=== PATIENT | male | born 1960 | race Hispanic/Latino ===

== ENCOUNTER 2020-06-02 09:24 | Outpatient (CLI) | payer OTHER, SELFPAY ==
[2020-06-02 09:36] LABS: Hemoglobin 15.1 g/dL (14.0-18.0); Mean Corpuscular HGB Conc 32.1 g/dL (32.0-36.0); Mean Corpuscular Hemoglobin 26.2 pg (27.0-31.0); Mean Corpuscular Volume 81.6 fL (78.0-102.0); Mean Platelet Volume 8.7 fl (8.7-11.0); Platelet Count Result 276 K/mm3 (150-420); Red Blood Count 5.76 M/mm3 (4.70-6.10); Red Cell Distribution Width 13.2 % (11.6-14.4); White Blood Count 5.9 K/mm3 (4.8-10.8)
[2020-06-02 10:17] LABS: Alanine Aminotransferase 43 U/L (16-63); Albumin Level 3.5 g/dL (3.4-5.0); Alkaline Phosphatase 48 U/L (46-116); Anion Gap 6 mmol/L (8-16); Aspartate Amino Transferase 28 U/L (15-37); Bilirubin,Total 0.7 mg/dL (0.00-1.00); Blood Urea Nitrogen 12 mg/dL (7-18); Calcium 8.9 mg/dL (8.5-10.1); Carbon Dioxide 31 mmol/L (21-32); Chloride 103 mmol/L (98-108); Cholesterol 232 mg/dL (0-200); Estimated Glomerular Filt Rate > 60; Glucose 197 mg/dL (70-99); HDL Direct 81 mg/dL (40-60); LDL Cholesterol Calculated 138 mg/dL (<130); Osmolality Calculated 294 mOsm/kg (285-295); Potassium 4.5 mmol/L (3.5-5.1); Sodium 140 mmol/L (136-145); Total Protein 6.7 g/dL (6.4-8.2); Triglycerides 67 mg/dL (0-150)
== END 2020-06-02 09:25 | disposition home or self-care (01) ==
LOC: CHSLAB 09:28
PROVIDERS: PCP Family Medicine; Visit Provider Family Medicine
DX: K21.9 Gastro-esophageal reflux disease without esophagitis (principal); R03.0 Elevated blood-pressure reading, without diagnosis of hypertension
CPT/HCPCS: 36415; 80053; 80061; 85027

== ENCOUNTER 2020-07-20 09:42 | Outpatient (CLI) | payer OTHER, SELFPAY | END 2020-07-20 09:43 | disposition home or self-care (01) | LOC: CHSLAB 09:43 | PROVIDERS: PCP Family Medicine; Visit Provider Family Medicine | DX: Z20.828 Contact with and (suspected) exposure to other viral communicable diseases (principal) | CPT/HCPCS: 36415; 86769 ==

== ENCOUNTER 2020-07-28 12:31 | Outpatient (CLI) | payer OTHER, SELFPAY ==
--- NOTE | ~2020-07-28 | CT_ITS ---
EXAMINATION: CT lung screening DATE: 07/28/2020 12:52 INDICATION: Personal history of nicotine dependence. TECHNIQUE: Computed tomography (CT) of the chest was performed without intravenous contrast. The dose -length product was 149.14 mGy-cm. Automated exposure control and iterative reconstruction technique were employed. COMPARISON: None FINDINGS: Heart size normal. No significant pleural or pericardial effusion. No thoracic lymphadenopa thy. There is mild atherosclerosis. There are pleural-based nodules in the right upper lobe anteriorl y, largest measuring 5 mm. There are small subpleural nodules measuring 2 mm or less predominantly af fecting the upper lobes, right greater than left. No endobronchial lesions. No focal airspace consoli dation. No pneumothorax. Mild thoracic spondylosis. IMPRESSION: 1. Lung-RADS category 2: Benign appearance or behavior. Continue annual screening with noncontrast lo w-dose chest CT in 12 months. Reviewed, dictated and finalized at location A. NESS RISK CONSULTANT IMPRESSION: 1. Lung-RADS category 2: Benign appearance or behavior. Continue annual screeni ng with noncontrast low-dose chest CT in 12 months.
== END 2020-07-28 12:32 | disposition home or self-care (01) ==
LOC: CHSIMG 12:32
PROVIDERS: PCP Family Medicine; Visit Provider Family Medicine
DX: Z12.2 Encounter for screening for malignant neoplasm of respiratory organs (principal); Z87.891 Personal history of nicotine dependence
CPT/HCPCS: G0297

== ENCOUNTER 2021-06-29 11:06 | Outpatient (CLI) | payer OTHER, SELFPAY ==
[2021-06-29 11:23] LABS: Hematocrit 49.4 % (40.0-54.0); Hemoglobin 16.2 g/dL (14.0-18.0); Mean Corpuscular HGB Conc 32.8 g/dL (32.0-36.0); Mean Corpuscular Hemoglobin 26.4 pg (27.0-31.0); Mean Corpuscular Volume 80.6 fL (78.0-102.0); Mean Platelet Volume 8.6 fl (8.7-11.0); Platelet Count Result 300 K/mm3 (150-420); Red Blood Count 6.13 M/mm3 (4.70-6.10); Red Cell Distribution Width 13.2 % (11.6-14.4); White Blood Count 7.1 K/mm3 (4.8-10.8)
[2021-06-29 12:32] LABS: Alanine Aminotransferase 73 U/L (16-63); Albumin Level 3.8 g/dL (3.4-5.0); Alkaline Phosphatase 49 U/L (46-116); Anion Gap 10 mmol/L (8-16); Aspartate Amino Transferase 39 U/L (15-37); Bilirubin,Total 0.9 mg/dL (0.00-1.00); Blood Urea Nitrogen 20 mg/dL (7-18); Carbon Dioxide 28 mmol/L (21-32); Chloride 100 mmol/L (98-108); Cholesterol 217 mg/dL (0-200); Estimated Glomerular Filt Rate > 60; Glucose 229 mg/dL (70-99); HDL Direct 68 mg/dL (40-60); LDL Cholesterol Calculated 132 mg/dL (<130); Osmolality Calculated 295 mOsm/kg (285-295); Potassium 4.8 mmol/L (3.5-5.1); Sodium 138 mmol/L (136-145); Total Protein 7.2 g/dL (6.4-8.2); Triglycerides 85 mg/dL (0-150)
== END 2021-06-29 11:07 | disposition home or self-care (01) ==
PROVIDERS: PCP Family Medicine; Visit Provider Family Medicine
DX: I10 Essential (primary) hypertension (principal); E78.5 Hyperlipidemia, unspecified
CPT/HCPCS: 36415; 80053; 80061; 85027

== ENCOUNTER 2021-08-01 10:14 | Outpatient (CLI) | payer OTHER, SELFPAY ==
--- NOTE | ~2021-08-01 | CT_ITS ---
EXAMINATION: CT lung screening DATE: 08/01/2021 10:29 INDICATION: Personal history of tobacco dependence. Smoker screening. TECHNIQUE: Computed tomography (CT) of the chest was performed without intravenous contrast. The dose -length product was 94.36 mGy-cm. Automated exposure control and iterative reconstruction technique w ere employed. COMPARISON: CT dated 07/28/2020 FINDINGS: No thoracic lymphadenopathy. Heart size normal. No significant pleural or pericardial effus ion. Stable pleural-based nodules measuring 5 mm or less. No significant change to small upper lobe n odules measuring 2 mm or less. No endobronchial lesions. No pneumothorax. The upper abdomen is unrema rkable. Mild thoracic spondylosis. No acute osseous abnormality. IMPRESSION: 1. Lung-RADS category 2: Benign appearance or behavior. Continue annual screening with noncontrast lo w-dose chest CT in 12 months. Reviewed, dictated and finalized at location A. ENT BLOCK LAYER IMPRESSION: 1. Lung-RADS category 2: Benign appearance or behavior. Continue annual screeni ng with noncontrast low-dose chest CT in 12 months.
== END 2021-08-01 10:15 | disposition home or self-care (01) ==
LOC: CHSIMG 10:16
PROVIDERS: PCP Family Medicine; Visit Provider Family Medicine
DX: Z12.2 Encounter for screening for malignant neoplasm of respiratory organs (principal); F17.210 Nicotine dependence, cigarettes, uncomplicated
CPT/HCPCS: 71271

== ENCOUNTER 2022-03-21 09:41 | Outpatient (CLI) | payer OTHER, SELFPAY ==
--- NOTE | ~2022-03-21 | XR_ITS ---
EXAM: XR hand BI arthritis min 3V DATE: 03/21/2022 10:04 HISTORY: hand pain times 2 months . COMPARISON: X-ray left wrist 03/15/2017. FINDINGS: Interval resolution of the soft tissue swelling over the distal and lateral aspect of the r adius. Mild soft tissue swelling over the metacarpal heads of the left hand. Normal mineralization. N o fracture or dislocation. No lytic or blastic lesion. Mild scattered joint space narrowing and osteo phytosis in the wrist and hands. No erosion or periosteal change. Soft tissues within normal limits. IMPRESSION: Interval resolution of the distal left radial soft tissue swelling previously reported to be related to de Quervain's tenosynovitis. Soft tissue swelling over the distal left metacarpal head s. Mild osteoarthritic change in the hands and wrists. Reviewed, dictated and finalized at location K. IMPRESSION: Interval resolution of the distal left radial soft tissue swelling previously reported to be related to de Quervain's tenosynovitis. Soft tissue s welling over the distal left metacarpal heads. Mild osteoarthritic change in th e hands and wrists.
[2022-03-21 10:00] LABS: Hematocrit 42.8 % (40.0-54.0); Hemoglobin 13.7 g/dL (14.0-18.0); Mean Corpuscular Hemoglobin 25.6 pg (27.0-31.0); Mean Corpuscular Volume 79.9 fL (78.0-102.0); Mean Platelet Volume 9.1 fl (8.7-11.0); Platelet Count Result 305 K/mm3 (150-420); Red Blood Count 5.36 M/mm3 (4.70-6.10); Red Cell Distribution Width 14.6 % (11.6-14.4)
[2022-03-21 10:28] LABS: Rheumatoid Factor Screen Negative (Negative)
[2022-03-21 11:13] LABS: Alanine Aminotransferase 44 U/L (16-63); Albumin Level 3.5 g/dL (3.4-5.0); Alkaline Phosphatase 47 U/L (46-116); Anion Gap 11 mmol/L (8-16); Aspartate Amino Transferase 39 U/L (15-37); Bilirubin,Total 0.4 mg/dL (0.00-1.00); Blood Urea Nitrogen 11 mg/dL (7-18); Calcium 9.1 mg/dL (8.5-10.1); Carbon Dioxide 28 mmol/L (21-32); Chloride 104 mmol/L (98-108); Estimated Glomerular Filt Rate > 60; Glucose 156 mg/dL (70-99); Osmolality Calculated 298 mOsm/kg (285-295); Potassium 4.6 mmol/L (3.5-5.1); Sodium 143 mmol/L (136-145); Total Protein 6.9 g/dL (6.4-8.2)
[2022-03-21 11:14] LABS: CRP < 0.2 mg/dL (0.0-0.9)
[2022-03-25 12:06] LABS: ANA Cascade Screen Positive (Negative)
[2022-03-25 13:26] LABS: Chromatin (Nucleosomal) Ab <1.0; RNP Antibody 2.4; Sm Antibody <1.0; Sm/RNP Antibody <1.0
== END 2022-03-21 09:42 | disposition home or self-care (01) ==
LOC: CHSLAB 09:44
PROVIDERS: PCP Family Medicine; Visit Provider Family Medicine
DX: M19.90 Unspecified osteoarthritis, unspecified site (principal)
CPT/HCPCS: 36415; 73130; 80053; 85027; 86038; 86140; 86430

== ENCOUNTER 2023-01-17 10:57 | Outpatient (CLI) | payer OTHER, SELFPAY ==
--- NOTE | ~2023-01-17 | CT_ITS ---
CT Scan of the Chest without Contrast: Clinical Indication: Lung cancer screening, smoking history Technique: Contiguous sections were acquired throughout the chest without intravenous contrast. Dose reduction technique was used on this scan by utilizing automated exposure control and iterative recon struction technique. The dose-length product (DLP) was 81.57 mGy-cm. COMPARISON: 08/01/2021 and 07/28/2020 Findings: There is no evidence of any significant mediastinal, hilar or axillary lymphadenopathy. Coronary louis ry calcifications are present. There is no evidence of pleural or pericardial effusion. Small calcified pleural plaque present at th e anterior right upper lobe. The lungs are clear. No pulmonary nodules or infiltrates are noted. Images through the upper abdomen reveal no abnormalities. Impression: Lung RADS 1: Negative. 12 month follow-up screening CT advised. Reviewed, dictated and finalized at location . Impression: Lung RADS 1: Negative. 12 month follow-up screening CT advised.
== END 2023-01-17 10:58 | disposition home or self-care (01) ==
LOC: CHSIMG 10:58
PROVIDERS: PCP Family Medicine; Visit Provider Family Medicine
DX: Z12.2 Encounter for screening for malignant neoplasm of respiratory organs (principal); Z87.891 Personal history of nicotine dependence
CPT/HCPCS: 71271

== ENCOUNTER 2024-04-21 11:08 | Outpatient (CLI) | payer MEDICARE, SELFPAY ==
--- NOTE | 2024-04-21 11:21 | ECG_ITS ---
Test Date: 2024-04-21 11:30:23 Measurements Intervals [place] Rate: 64 P: 74 IA: 173 QRS: 78 QRSD: 91 T: 80 QT: 378 QTc: 392 Interpretive Statements SINUS RHYTHM WITH VENTRICULAR TRIGEMINY INCOMPLETE RIGHT BUNDLE BRANCH BLOCK ABNORMAL ECG No previous ECG available for comparison Electronically Signed On 04-21-2024 12:07:40 CDT by Jef Crain D.O.
[2024-04-21 11:25] LABS: Basophils Absolute Auto 0.04 K/mm3 (0.00-0.10); Basophils Percent Auto 0.9 % (0.0-1.0); Eosinophils Absolute Auto 0.07 K/mm3 (0.02-0.50); Eosinophils Percent Auto 1.5 % (1.0-6.0); Hematocrit 42.8 % (37.0-46.0); Hemoglobin 14.1 g/dL (12.4-15.3); Immature Granulocyte Absolute 0.03 K/mm3 (0.00-0.00); Immature Granulocyte Percent A 0.6 % (0.0-0.0); Lymphocytes Absolute Auto 1.29 K/mm3 (1.10-4.50); Lymphocytes Percent Auto 27.5 % (18.0-42.0); Mean Corpuscular HGB Conc 32.9 g/dL (32-36); Mean Corpuscular Hemoglobin 25.9 pg (27.0-31.0); Mean Corpuscular Volume 78.7 fL (78.0-102.0); Monocytes Absolute Auto 0.31 K/mm3 (0.10-0.90); Monocytes Percent Auto 6.6 % (2.0-11.0); Neutrophils Absolute Auto 2.95 K/mm3 (1.70-7.20); Neutrophils Percent Auto 62.9 % (50.0-70.0); Platelet Count Result 253 K/mm3 (150-420); Red Blood Count 5.44 M/mm3 (4.70-6.10); Red Cell Distribution Width 14.1 % (11.6-14.4); White Blood Count 4.7 K/mm3 (4.8-10.8)
[2024-04-21 16:26] LABS: Alanine Aminotransferase 45 U/L (16-63); Albumin Level 3.7 g/dL (3.4-5.0); Alkaline Phosphatase 57 U/L (46-116); Anion Gap 4 mmol/L (4-12); Aspartate Amino Transferase 43 U/L (15-37); Bilirubin,Total 0.7 mg/dL (0.00-1.00); Blood Urea Nitrogen 14 mg/dL (7-18); Calcium 9.1 mg/dL (8.5-10.1); Carbon Dioxide 34 mmol/L (21-32); Chloride 100 mmol/L (98-108); Cholesterol 162 mg/dL (0-200); Estimated Glomerular Filt Rate > 60; Glucose 174 mg/dL (70-99); HDL Direct 100 mg/dL (40-60); LDL Cholesterol Calculated 56 mg/dL (<130); Osmolality Calculated 290 mOsm/kg (285-295); Potassium 5.3 mmol/L (3.5-5.1); Sodium 138 mmol/L (136-145); Total Protein 7.1 g/dL (6.4-8.2); Triglycerides 29 mg/dL (0-150)
[2024-04-21 16:56] LABS: Creatinine Urine 52.66 mg/dL (40-278); MALB Creatinine Ratio 24.6 mg/g (0-30); Microalbumin Urine Random < 13.0 mg/L
[2024-04-21 17:18] LABS: Hemoglobin A1C 6.2 % (<5.7)
== END 2024-04-21 11:09 | disposition home or self-care (01) ==
LOC: CHSLAB 11:10
PROVIDERS: PCP Nurse Practitioner Family; Visit Provider Nurse Practitioner Family
DX: E11.9 Type 2 diabetes mellitus without complications (principal); I10 Essential (primary) hypertension; Z13.6 Encounter for screening for cardiovascular disorders; E78.5 Hyperlipidemia, unspecified; I49.9 Cardiac arrhythmia, unspecified
CPT/HCPCS: 36415; 80053; 80061; 82043; 83036; 85025; 93005

== ENCOUNTER 2025-05-16 09:59 | Outpatient (CLI) | payer MEDICARE, SELFPAY ==
[2025-05-16 10:15] LABS: Hematocrit 43.2 % (37.0-46.0); Hemoglobin 14.0 g/dL (12.4-15.3); Immature Granulocyte Percent A 0.4 % (0.0-0.0); Lymphocytes Absolute Auto 1.51 K/mm3 (1.10-4.50); Mean Corpuscular HGB Conc 32.4 g/dL (32-36); Mean Corpuscular Hemoglobin 25.9 pg (27.0-31.0); Mean Corpuscular Volume 79.9 fL (78.0-102.0); Nucleated Red Blood Cells Absolute Auto 0.00 K/mm3 (0.00-0.00); Nucleated Red Blood Cells Perc 0.0 % (0-0.0); Platelet Count Result 257 K/mm3 (150-420); Red Blood Count 5.41 M/mm3 (4.70-6.10); White Blood Count 5.3 K/mm3 (4.8-10.8)
[2025-05-16 10:28] LABS: MALB Creatinine Ratio 12.3 mg/g (0-30)
[2025-05-16 10:53] LABS: Alanine Aminotransferase 39 U/L (6-50); Albumin Level 4.2 g/dL (3.5-5.1); Alkaline Phosphatase 57 U/L (38-126); Anion Gap 8 mmol/L (4-12); Aspartate Amino Transferase 48 U/L (17-59); Bilirubin,Total 1.1 mg/dL (0.2-1.3); Blood Urea Nitrogen 11 mg/dL (9-20); Calcium 9.6 mg/dL (8.4-10.2); Carbon Dioxide 28 mmol/L (22-30); Chloride 102 mmol/L (98-107); Cholesterol 143 mg/dL (0-200); Estimated Glomerular Filt Rate > 60; Glucose 222 mg/dL (65-110); HDL Direct 93 mg/dL; Osmolality Calculated 292 mOsm/kg (285-295); Potassium 5.0 mmol/L (3.4-5.0); Sodium 138 mmol/L (137-145); Total Protein 7.5 g/dL (6.3-8.2); Triglycerides 60 mg/dL (<150)
[2025-05-16 10:54] LABS: Hemoglobin A1C 6.8 % (<5.7)
== END 2025-05-16 10:00 | disposition home or self-care (01) ==
LOC: CHSLAB 10:01
PROVIDERS: PCP Family Medicine; Visit Provider Family Medicine
DX: E11.9 Type 2 diabetes mellitus without complications (principal); I10 Essential (primary) hypertension
CPT/HCPCS: 36415; 80053; 80061; 82043; 83036; 85025

== ENCOUNTER 2025-05-18 12:51 | Outpatient (CLI) | payer MEDICARE, SELFPAY ==
--- NOTE | ~2025-05-18 | CT_ITS ---
EXAMINATION:CT lung screening DATE: 05/18/2025 13:01 INDICATION: Personal history of nicotine dependence. TECHNIQUE: Computed tomography (CT) of the chest was performed without intravenous contrast. Automated exposure control and iterative reconstruction technique were employed. The dose-length product (DLP) was 78.64 mGy-cm. COMPARISON: Chest CT 01/17/23 FINDINGS: There is mild emphysema. There are a few 1-2 mm nodules in the upper lobes. No pleural effusion. The heart size is normal. There are coronary artery calcifications. No pericardial effusion. There is mild thoracic spondylosis. IMPRESSION: 1. Lung-RADS category 2: Benign appearance or behavior. Continue annual screening with noncontrast low-dose chest CT in 12 months. Reviewed, dictated and finalized at location E. IMPRESSION: 1. Lung-RADS category 2: Benign appearance or behavior. Continue annual screeni ng with noncontrast low-dose chest CT in 12 months.
--- OUTSIDE RECORDS SUMMARY | 2025-05-18 13:43 | XMS_ITS | Clinical Summary ---
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 Name Role Phone Feliberto Castellanos Primary Care Provider Allergies No known active allergies Medications omeprazole (PriLOSEC) 20 mg capsule 02/23/2022 Active atorvastatin (LIPITOR) 40 mg tablet 04/06/2022 Active lisinopriL (PRINIVIL,ZESTRI L) 20 mg tablet 04/06/2022 Act omayra metFORMIN (GLUCOPHAGE) 500 mg tablet 03/01/2022 Active meloxicam (MOBIC) 15 mg tabletIndication s:Osteoarthritis Take 1 tablet (15 mg total) by mouth daily 30 tablet 1 04/24/2022 Active Active Problems No known active problems Medical History Medical History Date Comments Hypertension Diabetes mellitus Hypercholesteremia Asthma Social History Tobacco Use Types Packs/Day Years Used Date Smoking Tobacco: Unknown Tobacco Cessation:Counseling Given: Not Answered Personal Safety Answer Date Recorded Getting School Help Needed Not on file 10/13 Sex and Gender Information Value Date Recorded Sex Assigned at Not on file Legal Sex Male 3:48 PM CDT Gender Identity Not on file Sexual Orientation Not on file Obstetrics History Last Filed Vital Signs Vital Sign Reading Time Taken Comments Blood Pressure 153/82 06/07/2022 12:49 PM CDT Pulse 71 06/07/2022 12:49 PM CDT Temperature - - Respiratory Rate - - Oxygen Saturation - - Inhaled Oxygen Concentration - - Weight 68 kg (150 lb) 06/07/2022 12:49 PM CDT Height 167.6 cm (5' 6) 06/07/2022 12:49 PM CDT Body Mass Index 24.21 06/07/2022 12:49 PM CDT Plan of Treatment Health Maintenance Due Date Last Done Comments Colon Cancer Screening-Colonoscopy 1958 Depression Screening 1958 Fall Risk Assessment 1958 Hepatitis C Screening 1960 Prostate Cancer Screening-PSA 1958 DTaP/Tdap/Td Vaccine (1 - Tdap) 1969 Hepatitis B Screening 1976 Pneumococcal vaccine 65+ (1 of 1 - PCV) 2008 Zoster Vaccine (1 of 2) 2008 Abdominal Aortic Aneurysm (AAA) Screen 2023 Well Visit 65+ 2023 Influenza Vaccine (#1) 2025 Insurance [facility] Care Teams Carburizing 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
== END 2025-05-18 12:52 | disposition home or self-care (01) ==
LOC: CHSIMG 12:51
PROVIDERS: PCP Family Medicine; Visit Provider Family Medicine
DX: Z12.2 Encounter for screening for malignant neoplasm of respiratory organs (principal); Z87.891 Personal history of nicotine dependence
CPT/HCPCS: 71271